=== PATIENT | female | born 1940 | race Caucasian/White ===

== ENCOUNTER 2025-04-08 11:10 | Emergency (ER) | payer MEDICARE, BC ==
[~2025-04-08] VITALS: Ht 162.6 cm; Wt 81.9 kg
[2025-04-08] MEDS ORDERED: PROP150T20 PO ×2 (11:31→16:24)
[2025-04-08] MEDS ORDERED: AMLO1TAB24 (11:31)
[2025-04-08] MEDS ORDERED: XARE20TA (11:31)
[2025-04-08] MEDS ORDERED: LISI40TA10 (11:31)
[2025-04-08 15:21] LABS: PLATELET COUNT, AUTOMATED 232 10^3/uL (150-450)
[2025-04-08 15:45] LABS: CALCIUM LEVEL 9.9 MG/DL (8.3-10.6); CARBON DIOXIDE LEVEL 22.0 MMOL/L (20-31); CHLORIDE LEVEL 107.0 MMOL/L (98-107); CREATININE FOR GFR 0.84 MG/DL (0.55-1.30); GLOMERULAR FILTRATION RATE 68.5 (>32); POTASSIUM SERUM 4.8 MMOL/L (3.5-5.1); SODIUM LEVEL 142.0 MMOL/L (136-145)
[2025-04-08] MEDS ORDERED: LISI40TA10 PO (16:24)
[2025-04-08] MEDS ORDERED: NORV5TAB PO (16:24)
[2025-04-08] MEDS ORDERED: XARE20TA PO (16:24)
[2025-04-08 16:38] VITALS: BP 174/82; TEMP 96.7; O2SAT 97
== END 2025-04-08 16:43 | disposition home or self-care (01) ==
LOC: M ED 11:10
DX: Z76.0 Encounter for issue of repeat prescription (principal); I10 Essential (primary) hypertension; Z86.79 Personal history of other diseases of the circulatory system; Z79.899 Other long term (current) drug therapy